=== PATIENT | male | born 1950 | race African-American/Black ===

== ENCOUNTER 2019-10-30 17:03 | Inpatient (IN) | payer MEDICARE, MEDICAID ==
[~2019-10-30] VITALS: Ht 165.1 cm; Wt 76.5 kg
[~2019-10-30 17:03] MED LIST: OLAN10TA3 PO
[2019-10-30] MEDS ORDERED: HALOPERIDOL 5 MG TABLET PO PRN (18:30)
[2019-10-30] MEDS ORDERED: LORazepam 1 MG TABLET PO PRN (18:30)
[2019-10-30] MEDS ORDERED: ZOLPIDEM TARTRATE 10 MG TABLET PO PRN (18:30)
[2019-10-30] MEDS ORDERED: INFLUENZA VIRUS VACCINE QVS 2019-20 (3YR+)/PF 60 MCG/0.5 ML SYRINGE IM ONE (20:45)
[2019-10-30] MEDS ORDERED: PNEUMOCOCCAL VACCINE POLYVALENT 0.5 ML VIAL [PPSV23] IM ONE (21:15)
[2019-10-30] MEDS ORDERED: NAPROXEN 250 MG TABLET PO PRN (21:45)
[2019-10-30 22:00] VITALS: BP 137/87
[2019-10-31 07:00] VITALS: BP 143/107
[2019-10-31 08:08] LABS: BASOPHILS % (AUTO) 0.6 % (0.0-2.0); EOSINOPHILS % (AUTO) 2.9 % (1.0-6.0); HEMATOCRIT 36.7 % (41-53); HEMOGLOBIN 12.1 g/dL (13.5-17.5); LYMPHOCYTES % (AUTO) 31.6 % (22.0-44.0); MEAN CORPUSCULAR HEMOGLOBIN 30.9 pg (26.0-34.0); MEAN CORPUSCULAR HGB CONC 32.8 G/dL (31.0-37.0); MEAN CORPUSCULAR VOLUME 94 fL (80-100); MONOCYTES # (AUTO) 0.9 K/uL (0.1-1.0); MONOCYTES % (AUTO) 14.6 % (2.0-9.0); NEUTROPHILS # (AUTO) 3.2 K/uL (1.8-7.7); NEUTROPHILS % (AUTO) 50.3 % (40.0-70.0); PLATELET COUNT (AUTO) 332 K/uL (150-450); RED BLOOD CELL COUNT(AUTO) 3.91 MIL/uL (4.50-5.90); RED CELL DISTRIBUTION WIDTH 13.5 % (11.5-14.5)
[2019-10-31 08:14] VITALS: BP 146/90
[2019-10-31 08:49] LABS: ALANINE AMINOTRANSFERASE 111 U/L (12-78); ALKALINE PHOSPHATASE 139 U/L (46-116); ANION GAP 7 mmol/L (8-16); ASPARTATE AMINOTRANSFERASE 48 U/L (15-37); BILIRUBIN,TOTAL 0.3 mg/dL (0.1-1.0); CALCIUM, TOTAL 8.2 mg/dL (8.8-10.5); CARBON DIOXIDE 27 mmol/L (22-29); CHLORIDE 108 mmol/L (98-107); CHOL/HDL RATIO 4.5 (4.2-7.3); CHOLESTEROL 166 mg/dL (131-200); CREATININE 0.71 mg/dL (0.60-1.30); FREE T4 (FREE THYROXINE) 0.75 ng/dL (0.76-1.46); GLOMERULAR FILTR. RATE CALC > 60 mL/min (>60); GLUCOSE,RANDOM 97 mg/dL (70-110); HDL CHOLESTEROL 37 mg/dL (40-60); LDL CHOL (CALC.) 100 mg/dL (0-130); POTASSIUM 4.5 mmol/L (3.5-5.1); SODIUM SERUM 142 mmol/L (136-145); THYROID STIMULATING HORMONE 0.57 uIU/mL (0.36-3.74); TOTAL PROTEIN, SERUM 6.2 g/dL (6.4-8.2); TRIGLYCERIDES 147 mg/dL (15-150); UREA NITROGEN, BLOOD 15 mg/dL (7-18)
[2019-10-31 16:13] VITALS: BP 133/83
[2019-10-31] MEDS: OLANZapine 7.5 MG TABLET PO SCH (20:52)
[2019-10-31] MEDS: DiphenhydrAMINE HCL 25 MG CAPSULE PO PRN (20:52)
[2019-10-31] MEDS ORDERED: BENZOCAINE/MENTHOL LOZENGE MM PRN (23:00)
[2019-10-31] MEDS ORDERED: OMEPRAZOLE 20 MG CAPSULE PO PRN (23:00)
[2019-10-31] MEDS ORDERED: PETROLATUM,WHITE 28 GM JELLY TP PRN (23:00)
[2019-10-31] MEDS ORDERED: ONDANSETRON HCL 4 MG TABLET PO PRN (23:00)
[2019-10-31] MEDS ORDERED: CloNIDine HCL 0.1 MG TABLET PO PRN (23:00)
[2019-10-31] MEDS ORDERED: BACITRACIN 28.4 GM OINTMENT TP PRN (23:00)
[2019-10-31] MEDS ORDERED: IBUPROFEN 600 MG TABLET PO PRN (23:00)
[2019-10-31] MEDS ORDERED: LOPERAMIDE HCL 2 MG CAPSULE PO PRN (23:00)
[2019-10-31] MEDS ORDERED: MAG HYDROX/AL HYDROX/SIMETH ES 30 ML SUSPENSION UDCUP PO PRN (23:00)
[2019-10-31] MEDS ORDERED: ACETAMINOPHEN 325 MG TABLET PO PRN (23:00)
[2019-10-31] MEDS ORDERED: MAGNESIUM HYDROXIDE SUSPENSION 30 ML UDCUP PO PRN (23:00)
[2019-10-31] MEDS ORDERED: DOCUSATE SODIUM 100 MG CAPSULE PO PRN (23:00)
[2019-10-31] MEDS ORDERED: ALBUTEROL SULFATE HFA 90 MCG/PUFF 8 GM INHALER IH PRN (23:00)
[2019-11-01 01:57] VITALS: BP 136/84
[2019-11-01 08:09] VITALS: BP 137/89
[2019-11-01 16:06] VITALS: BP 137/82
[2019-11-01] MEDS: OLANZapine 7.5 MG TABLET PO SCH (20:31)
[2019-11-02 00:15] VITALS: BP 112/71
[2019-11-02 08:05] VITALS: BP 118/76
[2019-11-02 16:30] VITALS: BP 134/81
[2019-11-02] MEDS: OLANZapine 7.5 MG TABLET PO SCH (20:39)
[2019-11-03 06:54] VITALS: BP 113/80
[2019-11-03 08:15] VITALS: BP 136/89
[2019-11-03 16:32] VITALS: BP 134/84
[2019-11-03] MEDS: OLANZapine 7.5 MG TABLET PO SCH (20:13)
[2019-11-04 07:30] VITALS: BP 137/76
[2019-11-04 08:36] VITALS: BP 134/92
[2019-11-04 16:35] VITALS: BP 140/89
[2019-11-04] MEDS: OLANZapine 7.5 MG TABLET PO SCH (20:35)
[2019-11-04] MEDS: DiphenhydrAMINE HCL 25 MG CAPSULE PO PRN (21:18)
[2019-11-05 00:47] VITALS: BP 132/82
[2019-11-05 08:27] VITALS: BP 132/83
[2019-11-05 16:27] VITALS: BP 150/89
[2019-11-05 18:56] VITALS: BP 137/89
[2019-11-05] MEDS: OLANZapine 7.5 MG TABLET PO SCH (20:47)
[2019-11-06 01:18] VITALS: BP 132/62
[2019-11-06 08:24] VITALS: BP 131/83
[2019-11-06 16:18] VITALS: BP 139/72
[2019-11-06] MEDS: OLANZapine 7.5 MG TABLET PO SCH (20:38)
[2019-11-06] MEDS: DiphenhydrAMINE HCL 25 MG CAPSULE PO PRN (20:53)
[2019-11-07 06:01] VITALS: BP 123/74
[2019-11-07 08:28] VITALS: BP 126/88
== END 2019-11-07 12:36 | disposition home or self-care (01) | DRG 885 ==
LOC: B2X 19:18
PROVIDERS: ADMIT Psychiatry & Neurology Psychiatry; ATTEND Psychiatry & Neurology Psychiatry
DX: F20.0 Paranoid schizophrenia (principal); R45.851 Suicidal ideations; F17.200 Nicotine dependence, unspecified, uncomplicated; G47.00 Insomnia, unspecified; K59.00 Constipation, unspecified; Z59.0 Homelessness
CPT/HCPCS: 80074; 84439; 84443; 87081; 90686

== ENCOUNTER 2022-09-16 17:04 | Emergency (ER) | payer MEDICARE, MEDICAID ==
[~2022-09-16] VITALS: Ht 162.6 cm; Wt 75.0 kg
[~2022-09-16 17:04] MED LIST changes: -OLAN10TA3 PO; +OLAN10TA74 PO
[2022-09-16 17:52] LABS: HEMATOCRIT 38.4 % (41-53); HEMOGLOBIN 12.7 g/dL (13.5-17.5); LYMPHOCYTES # (AUTO) 1.8 K/uL (1.0-4.8); LYMPHOCYTES % (AUTO) 27.8 % (22.0-44.0); MEAN CORPUSCULAR HGB CONC 33.1 G/dL (31.0-37.0); MEAN CORPUSCULAR VOLUME 94 fL (80-100); MONOCYTES # (AUTO) 0.8 K/uL (0.1-1.0); NEUTROPHILS # (AUTO) 3.6 K/uL (1.8-7.7); NEUTROPHILS % (AUTO) 56.2 % (40.0-70.0); PLATELET COUNT (AUTO) 269 K/uL (150-450); RED BLOOD CELL COUNT(AUTO) 4.09 MIL/uL (4.50-5.90); RED CELL DISTRIBUTION WIDTH 14.1 % (11.5-14.5)
[2022-09-16 18:01] LABS: ANION GAP 6 mmol/L (8-16); CALCIUM, TOTAL 8.6 mg/dL (8.8-10.5); CARBON DIOXIDE 26 mmol/L (22-29); CHLORIDE 108 mmol/L (98-107); CREATININE 0.89 mg/dL (0.60-1.30); GLUCOSE,RANDOM 109 mg/dL (70-110); POTASSIUM 3.7 mmol/L (3.5-5.1); SODIUM SERUM 140 mmol/L (136-145); UREA NITROGEN, BLOOD 11 mg/dL (7-18)
[2022-09-16 18:03] LABS: GLOMERULAR FILTR. RATE CALC > 60 mL/min (>60)
[2022-09-16 18:07] LABS: ALANINE AMINOTRANSFERASE 18 U/L (12-78); ALBUMIN 3.5 g/dL (3.4-5.0); ALKALINE PHOSPHATASE 92 U/L (46-116); ASPARTATE AMINOTRANSFERASE 21 U/L (15-37); BILIRUBIN,TOTAL 0.3 mg/dL (0.1-1.0); TOTAL PROTEIN, SERUM 6.9 g/dL (6.4-8.2)
[2022-09-16 18:45] VITALS: BP 130/85
== END 2022-09-17 01:31 | disposition home or self-care (01) ==
LOC: EMS 17:04
DX: R45.851 Suicidal ideations (principal); F31.9 Bipolar disorder, unspecified; F20.9 Schizophrenia, unspecified; F10.20 Alcohol dependence, uncomplicated; F17.210 Nicotine dependence, cigarettes, uncomplicated
CPT/HCPCS: 99284; 80053; 85025; 36415; G0480; 99282

== ENCOUNTER 2025-02-18 09:39 | Emergency (ER) | payer MEDICARE, OTHER ==
[~2025-02-18] VITALS: Ht 167.6 cm; Wt 75.0 kg
[2025-02-18] MEDS: IBUPROFEN 600 MG TABLET PO ONE (14:02)
[2025-02-18 16:16] VITALS: TEMP 97.9
[2025-02-18 16:39] VITALS: BP 141/83; PULSE 85; RESP 18; O2SAT 98
== END 2025-02-18 17:00 | disposition home or self-care (01) ==
LOC: EMS 09:41
DX: M16.12 Unilateral primary osteoarthritis, left hip (principal); F20.9 Schizophrenia, unspecified; F17.210 Nicotine dependence, cigarettes, uncomplicated; Z59.00 Homelessness unspecified
CPT/HCPCS: 73503; 99283